=== PATIENT | female | born 1965 | race Caucasian/White ===

== ENCOUNTER 2021-11-14 11:35 | Outpatient (CLI) | payer BC, SELFPAY ==
[2021-11-14 13:32] LABS: Cholesterol* 209 mg/dL (90-199)
[2021-11-14 13:33] LABS: HDL Cholesterol* 64 mg/dL (>=50); LDL Cholesterol Calculated 96 mg/dL (<100); Triglycerides* 245 mg/dL (40-149)
[2021-11-14 14:08] LABS: Ferritin* 8.3 ng/mL (11.1-264.0)
== END 2021-11-14 11:36 | disposition home or self-care (01) ==
PROVIDERS: PCP Family Medicine; Visit Provider Family Medicine
DX: E11.9 Type 2 diabetes mellitus without complications (principal); R53.83 Other fatigue; F32.9 Major depressive disorder, single episode, unspecified
CPT/HCPCS: 80061; 82728; 84443

== ENCOUNTER 2023-01-04 11:03 | Outpatient (CLI) | payer BC, SELFPAY ==
[2023-01-04 14:17] LABS: Sodium* 135 mmol/L (135-149)
[2023-01-04 14:18] LABS: Potassium* 4.5 mmol/L (3.6-5.1)
[2023-01-04 14:20] LABS: Cholesterol* 225 mg/dL (90-199); Creatinine* 0.7 mg/dL (0.5-1.5); Estimated Glomerular Filt Rate 100 ml/min
[2023-01-04 14:21] LABS: Blood Urea Nitrogen* 12 mg/dL (7-30); Calcium* 9.3 mg/dL (8.4-10.6); Carbon Dioxide* 24 mmol/L (20-32); Glucose* 146 mg/dL (60-115); HDL Cholesterol* 49 mg/dL (>=50); LDL Cholesterol Calculated 91 mg/dL (<100)
[2023-01-04 14:31] LABS: Basophils Absolute Auto 0.05 K/uL (0.00-0.30); Basophils Percent Auto 0.8 % (0.0-3.0); Eosinophils Percent Auto 8.3 % (0.0-7.0); Hematocrit 39.9 % (33.0-51.0); Hemoglobin* 13.4 gm/dL (12.0-16.0); Immature Granulocytes Abs Auto 0.01 K/uL (0.00-0.30); Immature Granulocytes Pct Auto 0.2 %; Lymphocytes Absolute Auto 2.17 K/uL (0.90-2.90); Lymphocytes Percent Auto 34.2 % (20-44); Mean Corpuscular HGB Conc 34 gm/dL (32-36); Mean Corpuscular Hemoglobin 28 pg (26-34); Mean Corpuscular Volume 83 fL (80-100); Monocytes Percent Auto 5.8 % (0.0-11.0); Neutrophils Absolute Auto 3.22 K/uL (1.7-7.0); Neutrophils Percent Auto 50.7 % (42.0-72.0); Platelet Count* 383 K/uL (140-440); RDW Coefficient of Variation % 14.5 % (11.5-15.5); Red Blood Count 4.82 m/uL (4.00-5.20); White Blood Count* 6.35 K/uL (4.50-11.00)
[2023-01-04 14:34] LABS: Anion Gap 9 mEq/L (7-15); Chloride* 102 mmol/L (96-114)
[2023-01-04 14:42] LABS: Slide Review Reflex No
[2023-01-04 14:46] LABS: Triglycerides* 427 mg/dL (40-149)
== END 2023-01-04 11:04 | disposition home or self-care (01) ==
PROVIDERS: PCP Family Medicine; Visit Provider Family Medicine
DX: Z01.818 Encounter for other preprocedural examination (principal); E11.9 Type 2 diabetes mellitus without complications; I10 Essential (primary) hypertension; F41.9 Anxiety disorder, unspecified
CPT/HCPCS: 80048; 80061; 85025

== ENCOUNTER 2023-09-19 12:18 | Outpatient (CLI) | payer BC, SELFPAY ==
--- OUTSIDE RECORDS SUMMARY | 2023-09-19 12:25 | XMS_ITS ---
Author Organization [facility] Address [address] [place] [address] Care Team Providers Care Patient Safety Coordinator Name Role Phone Unavailable Unavailable Unavailable Surgery Details Not on file Complications Check Surgery Details section. Procedure Estimated Blood Loss Check Surgery Details section. Procedure Findings Check Surgery Details section. Procedure Specimens Taken Check Surgery Details section.
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
--- OUTSIDE RECORDS SUMMARY | 2023-09-19 12:25 | XMS_ITS | Clinical Summary ---
Author Organization [facility] Address [address] [place] [address] Care Team Providers Care Yarn Conditioner Name Role Phone Elsewhere, Pcp Primary Care Provider Unavailabl e Source Comments Patient records contain information from all sites at [facility]. For routine questions regarding patient records, call [phone] during business hours, M-F 8:00 AM - 5:00 PM Central Time. Record requests for emergency care only can be directed to [phone] at any time.[facility] Allergies Active Allergy Reactions Criticality Noted Date Comments Latex Edema (Reselect Reaction) 07/24/2018 Nitrofurantoin Nausea Only 04/21/2013 Medications Medication Sig Dispensed Refills Start Date End Date Status buPROPion (WELLBUTRIN SR) 100 mg 12 hr tablet Take 100 mg by mouth. 11/14/2017 Active clonazePAM (KlonoPIN) 1 mg tablet 07/12/2018 Active cloNIDine (CATAPRES) 0.1 mg tablet 05/24/2018 Active cyclobenzaprine (FLEXERIL) 10 mg tablet Take 10 mg by mouth. 06/24/2018 Active Ozempic 0.25 mg or 0.5 mg (2 mg/3 mL) injection 09/14/2022 Active metFORMIN XR (GLUCOPHAGE-XR) 500 mg 24 hr tablet Take 1,000 mg by mouth. 06/22/2021 Active Active Problems Problem Noted Date Diagnosed Date Bleeding Postmenopausal 07/25/2018 Obesity Body Mass Index 30-39.9 Adult 07/25/2018 Ligation Tubal Status Post 07/25/2018 Immunizations Name Administration Dates Next Due Influenza, Unspecified 01/19/2009,02/17/2008,,05/04/2006 Social History Tobacco Use Types Packs/Day Years Used Date Smoking Tobacco: Never Smokeless Tobacco: Never Tobacco Cessation:Counseling Given: Not Answered Overall Financial Resource Strain (CARDIA) Answe r Date Recorded How hard is it for you to pa y for the very basics like food, housing, medical care, and heating? Hard 12/20/2022 Exercise Vital Sign Answer Date Recorde d On average, how many days pe r week do you engage in moderate to strenuous exercise (like a brisk walk)? Patient declined On average, how many minutes do you engage in exercise at this level? Patient declined 12/20/2022 Hunger Vital Sign Answer Date Recorded Within the past 12 months, y ou worried that your food would run out before you got the money to buy more. Sometimes true Within the past 12 months, t he food you bought just didn't last and you didn't have money to get more. Patient declined 09/2022 PRAPARE - Transportation Answer Date Re corded In the past 12 months, has l ack of transportation kept you from medical appointments or from getting medications? No 09/2022 In the past 12 months, has l ack of transportation kept you from meetings, work, or from getting things needed for daily living? No 12/20/2022 Nutrition Answer Date Recorded Nutrition: EVOO Fat Source Unknown 12/20 On average, how many serving s of fruits and vegetables do you eat per day (serving size is equal to 1 cup or approximately the size of a tennis ball)? 0-2 12/20/2022 Dental Answer Date Recorded Dental: Regular Dentist Unknown 06/18/19 21 Employment Answer Date Recorded Employment status Unemployed/not in th e paid workforce and NOT seeking employment 12/20/2022 Housing Stability Answer Date Recorded What is your living situation today? I have a [facility] place to live 12/20/2022 Sex and Gender Information Value Date Recorded Sex Assigned at Female 12/20/2022 12:49 PM CDT Gender Identity Female 12/20/2022 12:49 PM CDT Sexual Orientation Straight 12/20/2022 12 :49 PM CDT Last Filed Vital Signs Vital Sign Reading Time Taken Comments Blood Pressure 142/80 12/21/2022 10:53 AM CDT Pulse 64 08/05/2018 9:27 AM CDT Temperature - - Respiratory Rate 16 08/05/2018 9:27 AM CDT Oxygen Saturation - - Inhaled Oxygen Concentration - - Weight 88.4 kg (194 lb 14.2 oz) 023 10:53 AM CDT Height 160 cm (5' 2.99) 07/06/2016 2:44 PM CDT Body Mass Index 34.53 07/06/2016 2:44 PM CDT Plan of Treatment Health Maintenance Due Date Last Done Comments CT Colonography 1964 Cologuard 1964 Colonoscopy 1964 Colorectal Cancer Screening 1964 FIT 1964 Hepatitis C Screening 1965 Mammogram 1964 DTaP,Tdap,and Td Vaccines (1 - Tdap) 01/31/1983 Hepatitis B Vaccines (1 of 3 - 19+ 3-dose series) 01/31/1983 Zoster Vaccines (1 of 2) 01/31/2014 COVID-19 Vaccine (3 - 2022- season) 2022 08/10/2020, 07/20/2020 Influenza Vaccine (#1) 2023 9, 02/08/2016, 01/26/2013, Additional history exists Office Visit for Blood Pressure Check / Re-check 03/22/2023 12/21/2022 Depression Screening (Annual PHQ-2) 04/16/2023 Cervical Cancer Screening 04/27/20232020, 07/24/2018, 07/24/2018, Additional history exists Fasting Glucose for Diabetes Screening 06/20/2024 06/20/2021, 06/10/2020, 04/23/2020, Additional history exists Lipid (Cholesterol) Screening 11/05/2025 11/05/2020 Pneumococcal vaccine (0-64 years) Aged Out No longer eligible based on patient's age to complete this topic Procedures Procedure Name Priority Date/Time Associated Diagnosis Comments EXTI BASIC METABOLIC PANEL, S/P Routine 06/20/2021 5:30 PM IN HOME AIDE EXTI LIPID PANEL, S Routine 11/05/2020 12:43 PM CDT THINPREP W/HPV CO-TEST SCREEN Routine 07/24/2018 3:44 PM CDT Bleeding Postmenopausal from Last 3 Months or Most Recently Relevant to Health Maintenance Results * ThinPrep w/HPV Co-Test Screen (07/24/2018 3:44 PM CDT) 07/26/2018 1:55 PM CDT [facility] Report electronically signed by ALEX Vargsa(ASCP) I verify that I have examined all relevant slides/materials for the specimen(s) and rendered or confirmed the diagnosis. 07/26/2018 1:55 PM CDT [facility] Gross Description Received specimen in a ThinPrep vial. 07/26/2018 1:55 PM CDT [facility] Pap Test Source Cervical/Endocervi kartik 07/26/2018 1:55 PM CDT [facility] Clinical History postmenopausal bleeding 07/26/2018 1:55 PM CDT [facility] Menstrual Status(LMP, PM, ) PM 07/26/2018 1:55 PM CDT [facility] Hormone Therapy/Contracep tives None/Not known 07/26/2018 1:55 PM CDT [facility] Interpretation Cervical/Endocervi kartik ??(ThinPrep): Satisfactory for Evaluation Negative for Intraepithelial Lesion or Malignancy High Risk HPV Testing results are NEGATIVE. HPV by Cashier Associate-Medi ated Amplification ??(TMA) for E6/E7 viral messenger RNA (mRNA) is an in-vitro diagnostic test for the detection of 14 high-risk Human Papilloma (HPV) types (16, 18, 31, 33, 35, 39, 45, 51, 52, 56, 58, 59, 66, and 68) in cervical specimens. Additional testing performed at [facility], [address] [place] [id number]. 07/26/2018 1:55 PM CDT [facility] Varies (Cervix/Endocerv ix) 07/24/2018 3:44 PM CDT 07/25/2018 12:16 PM CDT China Carcamo M.D. LAB PAP PATHDX O RDERABLES [facility] [address] [place] [address], [facility] from Last 3 Months or Most Recently Relevant to Health Maintenance Care Teams Yarn Conditioner Relationship Specialty Start Date End Date Elsewhere, Pcp PCP - General Internal Medicine 07/24/18
--- OUTSIDE RECORDS SUMMARY | 2023-09-19 12:25 | XMS_ITS | Referral Summary ---
Author Organization [facility] Address [address] [place] [address] Care Team Providers Care Grid Inspector Name Role Phone Elsewhere, Pcp Primary Care Provider Unavailabl e Source Comments Patient records contain information from all sites at [facility]. For routine questions regarding patient records, call [phone] during business hours, M-F 8:00 AM - 5:00 PM Central Time. Record requests for emergency care only can be directed to [phone] at any time.[facility] Allergies Active Allergy Reactions Criticality Noted Date [...] your living situation today? I have a [facility] place to live 12/20/2022 Sex and [...] 07/06/2016 2:44 PM CDT Plan of Treatment Not on file Procedures Procedure Name Priority Date/Time Associated Diagnosis Comments EXTI BASIC METABOLIC PANEL, S/P Routine 06/20/2021 5:30 PM MARINE ENGINE MECHANIC EXTI LIPID PANEL, S Routine 11/05/2020 12:43 PM CDT THINPREP W/HPV CO-TEST SCREEN Routine 07/24/2018 3:44 PM CDT Bleeding Postmenopausal from Last 3 Months or Most Recently Relevant to Health Maintenance Results * ThinPrep w/HPV Co-Test Screen (07/24/2018 3:44 PM CDT) 07/26/2018 1:55 PM CDT [facility] Report electronically signed by ALEX Vargas(ASCP) I verify that I have examined all relevant slides/materials for the specimen(s) and rendered or confirmed the diagnosis. 07/26/2018 1:55 PM CDT [facility] Gross Description Received specimen in a ThinPrep vial. 07/26/2018 1:55 PM CDT [facility] Pap Test Source Cervical/Endocervi kartik 07/26/2018 1:55 PM CDT [facility] Clinical History postmenopausal bleeding 07/26/2018 1:55 PM CDT [facility] Menstrual Status(LMP, PM, ) PM 07/26/2018 1:55 PM CDT [facility] Hormone Therapy/Contracep tives None/Not known 07/26/2018 1:55 PM CDT [facility] Interpretation Cervical/Endocervi kartik ??(ThinPrep): Satisfactory for Evaluation Negative for Intraepithelial Lesion or Malignancy High Risk HPV Testing results are NEGATIVE. HPV by Chemical Research Engineer-Medi ated Amplification ??(TMA) for E6/E7 viral messenger RNA (mRNA) is an in-vitro diagnostic test for the detection of 14 high-risk Human Papilloma (HPV) types (16, 18, 31, 33, 35, 39, 45, 51, 52, 56, 58, 59, 66, and 68) in cervical specimens. Additional testing performed at [facility], [address] [place] [id number]. 07/26/2018 1:55 PM CDT [facility] Varies (Cervix/Endocerv ix) 07/24/2018 3:44 PM CDT 07/25/2018 12:16 PM CDT China Carcamo M.D. LAB PAP PATHDX O RDERABLES [facility] [address] [place] [id number], [facility] from Last 3 Months or Most Recently Relevant to Health Maintenance Care Teams Grid Inspector Relationship Specialty Start Date End Date Elsewhere, Pcp PCP - General Internal Medicine 07/24/18
== END 2023-09-19 12:19 | disposition home or self-care (01) ==
PROVIDERS: PCP Family Medicine; Visit Provider Family Medicine
DX: I10 Essential (primary) hypertension (principal); R53.83 Other fatigue; Z13.21 Encounter for screening for nutritional disorder; Z13.0 Encounter for screening for diseases of the blood and blood-forming organs and certain disorders involving the immune mechanism; Z13.29 Encounter for screening for other suspected endocrine disorder
CPT/HCPCS: 80048; 82306; 82607; 82728; 84443

== ENCOUNTER 2024-03-04 13:12 | Outpatient (CLI) | payer BC, SELFPAY ==
--- OUTSIDE RECORDS SUMMARY | 2024-03-04 13:17 | XMS_ITS | Clinical Summary ---
Author Organization [facility] Address [place], [place] [address] Care Team Providers Care Industrial Illuminating Engineer Name Role Phone Pcp, No Primary Care Provider Unavailabl e Allergies Active Allergy Reactions Criticality Noted Date [...] 05/10/2012 Urinary incontinence, stress 01/26/2009 Dysuria 10/15/2007 Overview (01/26/2009): Cystoscnormalopy 10/21 Esophageal reflux 08/15/2006 Migraine, unspecified, witho ut mention of intractable migraine without mention of status migrainosus Rosacea Anxiety disorder Agoraphobia Resolved Problems Problem Noted Date Diagnosed Date Resolved Date Drug-seeking behavior 07/08/20162016 Drug-seeking behavior 12/20/20132013 Pain medication agreement 06/16/2011 Overview (06/16/2011): Controlled substance contract signed 07/08/2010, see scanned document JADA LAI RN 06/16/2011 5:05 PM Anxiety state, unspecified 08/15/2006 1 Encounters Date Type Department Care Team Description 02/25/2024 Telephone [facility] [address] [place] [address] Rupinder Gardner DO Questions (Surgery ) 02/21/2024 1:30 PM STUDENT AFFAIRS VICE PRESIDENT Office Visit [facility] [address] [place] [address] Rupinder Gardner DO Follow Up (follow up from CT) 02/21/2024 Travel 02/15/2024 12:52 PM CDT - 02/15/2024 11:59 PM CDT Hospital Encounter [address] [place] [address] Rupinder Gardner DO Abdominal pain, unspecified abdominal location 02/15/2024 Travel 02/11/2024 Telephone [facility] [address] [place] [phone] Zachwieja, Surekha, DO Error-please disregard 02/08/[address] [phone] Rupinder Gardner, DO Questions (CT scan busy for week); UPDATE MESSAGE 02/07/2024 10:30 AM CDT Office Visit [facility] [address] [place] [address] Rupinder Gardner, DO Follow Up (having a bulge in the area of the hernia repair. pain with standing for too long, /) 02/07/2024 Travel 01/30/2024 Telephone [facility] [address] [place] [address] Rupinder Gardner, DO Injury from Last 3 Months Immunizations Name Administration Dates Next Due AMB Influenza, IIV3 (Age >=3 years)(Flu Clinic Only) 01/19/2009,02/17/2008 COVID-19 vaccine ([facility] [employer] 30mcg/0.3mL) PF, MDV 08/10/2020,07/20/2020 Influenza Virus, Unspecified 01/19/2009, 02/17/2008,02/26/2007,2006 Influenza, IIV3 (Age >=3 years) 01/27/20 13,01/22/2012,02/26/2007,2006 Influenza, IIV4 02/03/2019,02/08/2016 Family History Medical History Relation Name Comments Arthritis Mother Cancer-breast No Family History Relation Name Status Comments Brother Alive Father Alive Mother Alive RA and Depressi on Sister Alive Depression Son 1 Alive Son 2 Alive Mcpherson had medica l anorexia Son 3 Alive [...] Outcome GA Total Labor Labor/2nd/3rd Weight Sex Type Anes PTL Luisa A1 A5 Name Clin SAB Para Para Para Last Filed Vital Signs Vital Sign Reading Time Taken Comments Blood Pressure 110/84 02/21/2024 1:33 PM STUDENT AFFAIRS VICE PRESIDENT Pulse 99 02/21/2024 1:33 PM STUDENT AFFAIRS VICE PRESIDENT Temperature 35.9 C (96.7 F) 08/05/2023 11:33 AM CDT Respiratory Rate 20 08/05/2023 11:3 3 AM CDT Oxygen Saturation 97% 02/21/2024 1:33 PM STUDENT AFFAIRS VICE PRESIDENT Inhaled Oxygen Concentration - - Weight 92.5 kg (203 lb 14.4 oz) 02/21/2024 1:33 PM STUDENT AFFAIRS VICE PRESIDENT Height 156 cm (5' 1.42) 02/12/2023 3:31 PM CDT Body Mass Index 38.01 02/12/2023 3:31 PM CDT Plan of Treatment Upcoming Encounters Date Type Department Care Team (Late st Contact Info) Description 03/10/2024 1:30 PM STUDENT AFFAIRS VICE PRESIDENT Preop Visit [address] [phone] Josue Harper MD [address] [place] [address] 04/04/2024 11:00 AM STUDENT AFFAIRS VICE PRESIDENT Office Visit [address] [phone] Alyssa Dennison PA [address] [place] [id number] Health Maintenance Due Date Last Done Comments Tdap 01/31/1975 HIV for age 15-65 01/31/1979 Colonoscopy through age 75 01/31/2009 Zoster (shingles) series for age 50+ (1 of 2) 01/31/2014 Tetanus booster 09/30/2020 09/30/2010 (Postponed) Mammogram for age 45-75 09/10/2021 09/11/19 21, 03/11/2018, 11/04/2015, Additional history exists Depression screening for age 12+ 09/27/2021 09/27/2020, 09/27/2020, 09/23/2020, Additional history exists Pap test for age 21-65 04/27/2023 , 04/27/2020, 09/29/2014 (Completed outside of [facility]), Additional history exists COVID-19 vaccine series ( season) 2023 08/10/2020, 07/20/2020 Influenza for age 50-64 12/16/2023 02/04/20 19, [...] this topic Medical Devices Implanted Type Area City Distribution Clerk Device Identifier Shelf Expiration Date Model / Serial / Lot Mesh Ventral 2.5in Ventralex St W/Strap - [id number] Implanted:Qty: 1 on 11/10/2020 by Shaun Estrada MD at N/A: Abdomen [employer] 12/11/2021 [id number] / / [id number] Mesh Ventral 02e78ia Progrip Lapsc Slf Fixating - [id number] Implanted:Qty: 1 on 01/09/2023 by Rupinder Gardner DO at N/A: Abdomen [employer] 01/13/2025 [id number] / / [id number] Procedures Procedure Name Priority Date/Time Associated Diagnosis Comments CT ABDOMEN PELVIS WO Routine 02/15/2024 1:09 PM CDT Abdominal pain, unspecified abdominal location LIPID PANEL Routine 11/05/2020 12:43 PM CDT Routine adult health maintenance XR MAMMO BILAT SCREENING Routine 09/10/2020 10:44 AM CDT Visit for screening mammogram [facility] [employer] THIN PREP PAP SCREEN IMAGED Routine 04/27/2020 8:00 PM STUDENT AFFAIRS VICE PRESIDENT ANTI HCV Routine 04/23/2020 11:29 AM STUDENT AFFAIRS VICE PRESIDENT Encounter for hepatitis C screening test for low risk patient Rash from Last 3 Months or Most Recently Relevant to Health Maintenance Results * CT ABDOMEN PELVIS WO (02/15/2024 1:09 PM CDT) Anatomical Region Laterality Modality Abdomen, Pelvis, AORTA, LIVER, SPLEEN Computed Tomography 02/16/2024 11:3 5 AM CDT Impressions 02/16/2024 11:35 AM CDT 1. New incisional ventral hernia at prior repair site containing a portion of small bowel. No evidence of bowel strangulation or obstruction. 2. Stable nonobstructing bilateral renal calculi measuring up to 2 mm. 3. Small hiatal hernia. 4. Hepatic steatosis. Please note that all CT scans at this facility use dose modulation, iterative reconstruction, and/or weight-based dosing when appropriate to reduce radiation dose to as low as reasonably achievable. Dictated by Jacinto Diehl MD @ 02/16/2024 11:35:47 AM (Electronically Signed) Narrative 02/16/2024 11:35 AM CDT For Patients: As a result of the Century Cures Act, medical imaging exams and procedure reports are released immediately into your electronic medical record. You may view this report before your referring provider. If you have questions, please contact your health care provider. CLINICAL INFORMATION: Abdominal pain. TECHNIQUE: Noncontrast CT of the abdomen and pelvis was obtained. Coronal and sagittal reformatted images were obtained. Radiation Dose Estimate (Total Exam DLP): 933 mGy-cm. COMPARISON: CT abdomen and pelvis 01/30/2023. FINDINGS: Lower Chest: Lung bases: No focal airspace opacities or pleural effusions. Heart/Pericardium: Unremarkable. Abdomen/Pelvis: Liver: Demonstrates diffusely decreased attenuation consistent with fatty infiltration. Gallbladder: Absent Spleen: Unremarkable. Adrenal glands: Stable left adrenal adenoma. Kidneys: No hydronephrosis in either kidney. Multiple punctate nonobstructing bilateral renal calculi which appear stable to prior examination measuring up to 2 mm. Pancreas: Unremarkable. Lymph nodes: No retroperitoneal, mesenteric, inguinal, or pelvic adenopathy by CT criteria. Vascular: Abdominal aorta normal in caliber. Bowel: Evaluation is limited without enteric contrast. Small hiatal hernia. Grossly unremarkable. Urinary bladder: Limited evaluation due to underdistention. No gross pathology. Reproductive structures: Coarse uterine calcifications may correspond to involuting fibroids. No abdominal/pelvis ascites or free intraperitoneal air. Musculoskeletal: Incisional ventral hernia containing portion of small bowel without evidence of strangulation. Procedure Note Jacinto Diehl MD - 02/16/2024 For Patients: As a result of the Century Cures Act, medical imagingexams and procedure reports are released immediately into your electronicmedical record. You may view this report before your referring provider.If you have questions, please contact your health care provider. CLINICAL INFORMATION: Abdominal pain. TECHNIQUE: Noncontrast CT of the abdomen and pelvis was obtained. Coronal andsagittal reformatted images were obtained. Radiation Dose Estimate (Total Exam DLP): 933 mGy-cm. COMPARISON: CT abdomen and pelvis 01/30/2023. FINDINGS: Lower Chest: Lung bases: No focal airspace opacities or pleural effusions. Heart/Pericardium: Unremarkable. Abdomen/Pelvis: Liver: Demonstrates diffusely decreased attenuation consistent with fattyinfiltration. Gallbladder: Absent Spleen: Unremarkable. Adrenal glands: Stable left adrenal adenoma. Kidneys: No hydronephrosis in either kidney. Multiple punctatenonobstructing bilateral renal calculi which appear stable to priorexamination measuring up to 2 mm. Pancreas: Unremarkable. Lymph nodes: No retroperitoneal, mesenteric, inguinal, or pelvicadenopathy by CT criteria. Vascular: Abdominal aorta normal in caliber. Bowel: Evaluation is limited without enteric contrast. Small hiatalhernia. Grossly unremarkable. Urinary bladder: Limited evaluation due to underdistention. No grosspathology. Reproductive structures: Coarse uterine calcifications may correspond toinvoluting fibroids. No abdominal/pelvis ascites or free intraperitoneal air. Musculoskeletal: Incisional ventral hernia containing portion of small bowel withoutevidence of strangulation. IMPRESSION: 1. New incisional ventral hernia at prior repair site containing a portionof small bowel. No evidence of bowel strangulation or obstruction. 2. Stable nonobstructing bilateral renal calculi measuring up to 2 mm. 3. Small hiatal hernia. 4. Hepatic steatosis. Please note that all CT scans at this facility use dose modulation,iterative reconstruction, and/or weight-based dosing when appropriate toreduce radiation dose to as low as reasonably achievable. Dictated by Jacinto Diehl MD @ 02/16/2024 11:35:47 AM (Electronically Signed) Rupinder Gardner DO CT * (ABNORMAL) LIPID PANEL (11/05/2020 12:43 PM CDT) CHOLESTEROL,TOTAL 210(H) 100 - 199 mg/dL 11/05/2020 1:31 PM CDT [facility] TRIGLYCERIDES 126 <150 mg/dL 11/05/2020 1:31 PM CDT [facility] HDL CHOLESTEROL 64 >40 mg/dL 1:31 PM CDT [facility] NON-HDL CHOLESTEROL 146(H) <145 mg/dl 11/05/2020 1:31 PM CDT [facility] CHOL/HDL RATIO 3.28 <4.50 11/05/2020 1:31 PM CDT [facility] LDL CHOLESTEROL 121 <=130 mg/dL 11/05/2020 1:31 PM CDT [facility] VLDL CHOLESTEROL 25 mg/dL 11/06/19 21 1:31 PM CDT [facility] PROVIDER ORDERED STATUS RANDOM 11/05/2020 1:31 PM CDT [facility] Blood BLOOD SPECIMEN / Unknown Venipuncture / Unknown 11/05/2020 12:43 PM CDT 11/05/2020 12:47 PM CDT Mouna Sewell MD [place] [address] * XR MAMMO BILAT SCREENING (09/10/2020 10:44 AM CDT) Anatomical Region Laterality Modality BREASTS, Breast Left, Breast Right Bilateral Mammography Impressions 09/10/2020 11:32 AM CDT There is no radiographic evidence for malignancy. Recommend annual mammograms. MAMMOGRAM ASSESSMENT: ACR 2 Benign PATIENTS: You will also receive a letter with your examination results in an easy to read format. If you have questions about your results, please contact your referring provider. Narrative 09/10/2020 11:32 AM CDT XR MAMMO BILAT SCREENING [[id number]] CLINICAL HISTORY: This is an asymptomatic 55 y.o. patient. INDICATION FOR EXAM: Mammogram Screening. TECHNIQUE: CC & MLO views were obtained. This study was evaluated with the assistance of Computer-Aided Detection. COMPARISON FILMS: Yes 03/11/18 [employer] FINDINGS: The breasts are almost entirely fatty. No suspicious masses or microcalcifications. Intramammary lymph node within both breasts. Aislinn Nelson HORSEBACK EXCAVATOR MAMMO * [facility] THIN PREP PAP SCREEN IMAGED (04/27/2020 8:00 PM STUDENT AFFAIRS VICE PRESIDENT) Case Report Gynecologic Cytology Report Case: [id number] Authorizing Provider: Marlene Zhang PA-C Collected: 04/27/20201999 Ordering Location: [facility] Received: 04/28/2020 1802 First Screen: Kinjal Bowens Rescreen: Glendy Horowitz Specimen: [facility] ThinPrep Vial Screening, Cervical/Vaginal 05/06/2020 6:53 PM STUDENT AFFAIRS VICE PRESIDENT [facility] INTERPRETATION/ RESULT NEGATIVE FOR INTRAEPITHELIAL LESION OR MALIGNANCY (NIL) (none) 05/06/2020 6:53 PM STUDENT AFFAIRS VICE PRESIDENT [facility] IMEN ADEQUACY Satisfactory for evaluation Endocervical component present 05/06/2020 6:53 PM STUDENT AFFAIRS VICE PRESIDENT [facility] HPV REQUEST HPV and PAP 05/06/2020 6:53 PM STUDENT AFFAIRS VICE PRESIDENT [facility] Menstrual Status Postmenopausal 05/06/2020 6:53 PM STUDENT AFFAIRS VICE PRESIDENT [facility] Additional Information 05/06/2020 6:53 PM STUDENT AFFAIRS VICE PRESIDENT [facility] Comment: Interpreted at [facility] - [address], [place] [address] Automated Review Successful 05/06/2020 6:53 PM STUDENT AFFAIRS VICE PRESIDENT [facility] Comment:Specimen processed s uccessfully by automated camper assembler device, ThinPrep Imaging System, [employer] ANCILLARY TESTING [facility] HPV Ordered, Please see separate report 05/06/2020 6:53 PM STUDENT AFFAIRS VICE PRESIDENT [facility] Note The pap test is a screening technique, not a diagnostic procedure. It is used primarily to screen for squamous cancers and precursor lesions. Published studies have shown that it is subject to both false negative and false positive results. The pap test should not be used as the sole means to diagnose or exclude pre-malignant and malignant lesions. 05/06/2020 6:53 PM STUDENT AFFAIRS VICE PRESIDENT [facility] Other (Cervical/Vagina l) 04/27/2020 8:00 PM STUDENT AFFAIRS VICE PRESIDENT 04/28/2020 6:05 PM STUDENT AFFAIRS VICE PRESIDENT Marlene Zhang PA-C PATHOLOGY/CYTOLOGY [facility] [address] [place] [address], * ANTI HCV (04/23/2020 11:29 AM STUDENT AFFAIRS VICE PRESIDENT) HEPATITIS C ANTIBODY Non-React jesus Non-React jesus 04/23/2020 9:12 PM STUDENT AFFAIRS VICE PRESIDENT [facility] Comment:Antibodies to HCV no t detected; does not exclude the possibility of exposure to HCV. Blood BLOOD SPECIMEN / Unknown Venipuncture / Unknown 04/23/2020 11:29 AM STUDENT AFFAIRS VICE PRESIDENT 04/23/2020 11:32 AM STUDENT AFFAIRS VICE PRESIDENT Aislinn Nelson HORSEBACK EXCAVATOR [facility] [address] [place] [address], [place] from Last 3 Months or Most Recently [...] 7:52 AM 08/12/2018 1:21 PM Care Teams Industrial Illuminating Engineer Relationship Specialty Start Date End Date Pcp, No . PCP - General 02/13/24
--- OUTSIDE RECORDS SUMMARY | 2024-03-04 13:17 | XMS_ITS | Clinical Summary ---
Author Organization [facility] Address [address] [place] [address] Care Team Providers Care Climate Change Risk Assessor Name Role Phone Elsewhere, Pcp Primary Care Provider Unavailabl e Source Comments Patient records contain information from all sites at [facility]. For routine questions regarding patient records, call [phone] during business hours, M-F 8:00 AM - 5:00 PM Central Time. Record requests for emergency care only can be directed to [phone] at any time.[facility] Allergies Active Allergy Reactions Criticality Noted Date Comments Latex Edema (Reselect Reaction) 07/24/2018 Nitrofurantoin Nausea Only 04/21/2013 Medications buPROPion (WELLBUTRIN SR) 100 mg 12 hr [...] your living situation today? 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 Gender Identity Female 12/20/2022 12:49 PM CDT [...] DTaP,Tdap,and Td Vaccines (1 - Tdap) 01/31/1983 Zoster Vaccines (1 of 2) 01/31/2014 Office Visit for Blood Pressure Check / Re-check 03/22/2023 12/21/2022 Depression Screening (Annual PHQ-2) 04/16/2023 Cervical/Vaginal Cancer Screening 04/27/2023 04/27/2020, 07/24/2018, 07/24/2018, Additional history exists COVID-19 Vaccine ( season) 2023 08/10/2020, 07/20/2020 Influenza Vaccine (#1) 2024 9, 02/08/2016, 01/26/2013, Additional history exists Fasting Glucose for Diabetes Screening 06/20/2024 06/20/2021, 06/10/2020, 04/23/2020, Additional history exists Lipid (Cholesterol) Screening 11/05/2025 11/05/2020 Hepatitis B Vaccines Aged Out No long er eligible based on patient's age to complete this topic IPV Vaccines Aged Out No longer eligi ble based on patient's age to complete this topic Pneumococcal vaccine (0-64 years) Aged Out No longer eligible based on patient's age to complete this topic Procedures Procedure Name Priority Date/Time Associated Diagnosis Comments THINPREP W/HPV CO-TEST SCREEN Routine 07/24/2018 3:44 PM CDT Bleeding Postmenopausal from Last 3 Months or Most Recently Relevant to Health Maintenance Results * ThinPrep w/HPV Co-Test Screen (07/24/2018 3:44 PM CDT) 07/26/2018 1:55 PM CDT [facility] Report electronically signed by ALEX Vargas(ASCP) I verify that I have examined all relevant slides/materials for the specimen(s) and rendered or confirmed the diagnosis. 07/26/2018 1:55 PM CDT [facility] Gross Description Received specimen in a ThinPrep vial. 07/26/2018 1:55 PM CDT [facility] Pap Test Source Cervical/Endocervi kartik 07/26/2018 1:55 PM CDT [facility] Clinical History postmenopausal bleeding 07/26/2018 1:55 PM CDT [facility] Menstrual Status(LMP, PM, ) PM 07/26/2018 1:55 PM CDT [facility] Hormone Therapy/Contracep tives None/Not known 07/26/2018 1:55 PM CDT [facility] Interpretation Cervical/Endocervi kartik (ThinPrep): Satisfactory for Evaluation Negative for Intraepithelial Lesion or Malignancy High Risk HPV Testing results are NEGATIVE. HPV by Bottom Painter-Medi ated Amplification (TMA) for E6/E7 viral messenger RNA (mRNA) is an in-vitro diagnostic test for the detection of 14 high-risk Human Papilloma (HPV) types (16, 18, 31, 33, 35, 39, 45, 51, 52, 56, 58, 59, 66, and 68) in cervical specimens. Additional testing performed at [facility], [address] [place] [address]. 07/26/2018 1:55 PM CDT [facility] Varies (Cervix/Endocerv ix) 07/24/2018 3:44 PM CDT 07/25/2018 12:16 PM CDT China Carcamo M.D. LAB PAP PATHDX ORDERABLE S Final Result [facility] [address] [place] [address], [facility] from Last 3 Months or Most Recently Relevant to Health Maintenance Insurance [facility] Care Teams Climate Change Risk Assessor Relationship Specialty Start Date End Date Elsewhere, Pcp PCP - General Internal Medicine 07/24/18
--- OUTSIDE RECORDS SUMMARY | 2024-03-04 13:17 | XMS_ITS | Referral Summary ---
Author Organization [facility] Address [address] [place] [address] Care Team Providers Care Contract Negotiator Name Role Phone Elsewhere, Pcp Primary Care Provider Unavailabl e Source Comments Patient records contain information from all sites at [facility]. For routine questions regarding patient records, call [phone] during business hours, M-F 8:00 AM - 5:00 PM Central Time. Record requests for emergency care only can be directed to [phone] at any time.[facility] Allergies Active Allergy Reactions Criticality Noted [...] your living situation today? 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 07/26/2018 1:55 PM CDT [facility] Gross Description Received specimen in a ThinPrep vial. 07/26/2018 1:55 PM CDT [facility] Pap Test Source Cervical/Endocervi kartik 07/26/2018 1:55 PM CDT [facility] Clinical History postmenopausal bleeding 07/26/2018 1:55 PM CDT [facility] Menstrual Status(LMP, PM, ) PM 07/26/2018 1:55 PM CDT [facility] Hormone Therapy/Contracep tives None/Not known 07/26/2018 1:55 PM CDT [facility] Interpretation Cervical/Endocervi kartik (ThinPrep): Satisfactory for Evaluation Negative for Intraepithelial Lesion or Malignancy High Risk HPV Testing results are NEGATIVE. HPV by Education Analyst-Medi ated Amplification (TMA) for E6/E7 viral messenger RNA (mRNA) is an in-vitro diagnostic test for the detection of 14 high-risk Human Papilloma (HPV) types (16, 18, 31, 33, 35, 39, 45, 51, 52, 56, 58, 59, 66, and 68) in cervical specimens. Additional testing performed at [facility], [address] [place] [id number]. 07/26/2018 1:55 PM CDT [facility] Varies (Cervix/Endocerv ix) 07/24/2018 3:44 PM CDT 07/25/2018 12:16 PM CDT us China Carcamo M.D. LAB PAP PATHDX ORDERABLE S Final Result [facility] [address] [place] [id number], [facility] from Last 3 Months or Most Recently Relevant to Health Maintenance Insurance [facility] Care Teams Contract Negotiator Relationship Specialty Start Date End Date Elsewhere, Pcp PCP - General Internal Medicine 07/24/18
--- OUTSIDE RECORDS SUMMARY | 2024-03-04 13:17 | XMS_ITS ---
Author Organization [facility] Address [address] [place] [address] Care Team Providers Care Oil Expeller Name Role Phone Unavailable Unavailable Unavailable Surgery Details Not on file Complications Check Surgery Details section. Procedure Estimated Blood Loss Check Surgery Details section. Procedure Findings Check Surgery Details section. Procedure Specimens Taken Check Surgery Details section.
== END 2024-03-04 13:13 | disposition home or self-care (01) ==
PROVIDERS: PCP Family Medicine; Visit Provider Family Medicine
DX: E11.9 Type 2 diabetes mellitus without complications (principal); R53.83 Other fatigue; E55.9 Vitamin D deficiency, unspecified; I10 Essential (primary) hypertension; Z13.6 Encounter for screening for cardiovascular disorders; Z01.818 Encounter for other preprocedural examination
CPT/HCPCS: 80048; 80061; 82306; 82728; 85025

== ENCOUNTER 2024-07-24 09:00 | Outpatient (CLI) | payer BC, SELFPAY | END 2024-07-24 09:01 | disposition home or self-care (01) | PROVIDERS: PCP Family Medicine; Visit Provider Family Medicine | DX: E55.9 Vitamin D deficiency, unspecified (principal); I10 Essential (primary) hypertension; E11.65 Type 2 diabetes mellitus with hyperglycemia; Z79.84 Long term (current) use of oral hypoglycemic drugs; Z79.85 Long-term (current) use of injectable non-insulin antidiabetic drugs | CPT/HCPCS: 80048; 82306; 82728 ==

== ENCOUNTER 2024-09-12 10:55 | Outpatient (CLI) | payer BC, SELFPAY ==
[2024-09-12 14:16] LABS: Creatinine Urine 48.3 mg/dL
[2024-09-12 14:23] LABS: Microalbumin Creatinine Ratio 20 mg/g (0-30); Microalbumin Urine 1 mg/dL
== END 2024-09-12 10:56 | disposition home or self-care (01) ==
LOC: FBOREF 10:55
PROVIDERS: PCP Family Medicine; Visit Provider Family Medicine
DX: E11.65 Type 2 diabetes mellitus with hyperglycemia (principal); Z79.84 Long term (current) use of oral hypoglycemic drugs
CPT/HCPCS: 82043; 82570

== ENCOUNTER 2024-10-15 11:30 | Outpatient (CLI) | payer BC, SELFPAY | END 2024-10-15 11:31 | disposition home or self-care (01) | LOC: NFLDREF 10-19 07:14 | PROVIDERS: PCP Family Medicine; Referring Provider Family Medicine; Visit Provider Family Medicine | DX: M54.50 Low back pain, unspecified (principal) | CPT/HCPCS: 87086 ==